=== PATIENT | female | born 1975 | race Caucasian/White ===

== ENCOUNTER 2017-05-02 21:51 | Emergency (ER) | payer OTHER ==
[~2017-05-02] VITALS: Ht 172.7 cm; Wt 87.0 kg
[~2017-05-02 21:51] MED LIST: IBUP-103 PO
[2017-05-02 21:56] VITALS: TEMP 36.9; Ht 172.7 cm; Wt 87.0 kg
[2017-05-02] MEDS ORDERED: NITR-5 PO (22:08)
[2017-05-02] MEDS ORDERED: PHEN-876 PO (22:08)
--- NOTE | 2017-05-02 22:10 | EMERGENCY ROOM VISIT NOTE ---
History First contact with patient: 22:01 Chief Complaint: URINARY SYMPTOMS Stated Complaint: UTI History of Present Illness The patient is a 41 year old female who presents to the Emergency Room with complaints of urinary symptoms. The patient states that she developed urinary urgency, increased frequency of urination, and dysuria today. She has a history of UTIs and states this feels similar. She rates her discomfort an 8/ 10. She denies any abdominal pain, back pain or fevers. She denies any abnormal vaginal discharge. Review of Systems A complete 10 point review of systems was reviewed with the patient with pertinent positives and negatives as per history of present illness. All else were negative. Social History Smoking Status: Current Every Day Smoker Occupation Status: employed Current/Historical Medications Scheduled Buprenorphine Hcl-Naloxone Hcl (Suboxone 8-2 Mg), 1 DOSE SL DAILY Nitrofurantoin Monohyd Macrocr (Macrobid), 100 MG PO BID Phenazopyridine HCl (Pyridium), 200 MG PO TID Physical Exam Vital Signs Date Time Temp Pulse Resp B/P (MAP) Pulse Ox O2 Delivery O2 Flow Rate FiO2 05/02/17 21:56 36.9 82 16 110/78 96 Room Air Physical Exam VITALS: Vitals are noted on the nurse's note and reviewed by myself. Vital signs stable. Afebrile. GENERAL: This is a 41-year-old female, in no acute distress, nondiaphoretic, well-developed well-nourished. HEART: Regular rate and rhythm without murmurs gallops or rubs. LUNGS: Clear to auscultation bilaterally without wheezes, rales or rhonchi. ABDOMEN: Positive bowel sounds x 4. Soft, nontender to palpation. MUSCULOSKELETAL: No CVA tenderness. NEURO: Patient was alert and oriented to person place and time. Medical Decision & Procedures ED Course The patient was evaluated as above. Urine sample was obtained and sent for culture. Patient was given home packs of Macrobid and Pyridium. Discharge instructions were reviewed with the patient. The patient verbalized understanding of my assessment and treatment plan and was discharged home in good condition. Medical Decision Differential diagnosis includes UTI, pyelonephritis, vaginal infection, among others. The patient is a 41-year-old female who presents today complaining of urinary symptoms. She is afebrile and without back pain. Urine dip showed blood and white blood cells. The patient has had urinary tract infections and has been seen here in the past. Previous cultures have grown out pansensitive Escherichia coli. Patient will be placed on Macrobid and Pyridium for symptomatic relief. Based on the patient's presentation and work up, I feel the patient is stable for outpatient treatment. The patient was educated to return to the emergency department for any worsening of their current condition or new/concerning symptoms. She will follow up with her PCP as needed. Medication Reconcilliation Current Medication List: was personally reviewed by me Blood Pressure Screening Patient's blood pressure: Normal blood pressure Impression Primary Impression: Urinary tract infection Departure Information Dispostion Home / Self-Care Condition GOOD Prescriptions Phenazopyridine HCl (Pyridium) 200 Mg Tab 200 MG PO TID for 2 Days, #6 TAB Prov: Sylwia Francisco PA-C 05/02/17 Nitrofurantoin Monohyd Macrocr (Macrobid) 100 Mg Cap 100 MG PO BID for 7 Days, #14 CAP Prov: Sylwia Francisco PA-C 05/02/17 Referrals No Doctor, Assigned (PCP) Patient Instructions My [facility] Additional Instructions You have been treated in the Emergency Department for a Urinary Tract Infection (UTI). You have been prescribed Macrobid to be taken twice daily for a total of 7 days. This is an antibiotic. All antibiotics have the potential to cause diarrhea. Stop this medication and contact a medical provider if you were to develop any significant adverse side effects including: wheezing, shortness of breath, passing out, vomiting, or a diffuse rash. Always take antibiotics as directed and COMPLETE the ENTIRE course regardless of the improvement of your symptoms. You have been prescribed Pyridium to be taken as prescribed. This medicine will help with the urinary symptoms that you have been experiencing. Be aware that Pyridium may turn your urine a red-orange or brown color. This effect is harmless. Drink plenty of water and stay well hydrated. As with any trip to the Emergency Department, you should follow-up with your Primary Care Provider from today's visit. Return to the emergency department if your symptoms persist despite treatment plan outlined above or if the following symptoms occur: increased fevers, chills , low back pain, nausea/vomiting, or blood in your urine. Problem Qualifiers Primary Impression: Urinary tract infection Urinary tract infection type: acute cystitis Hematuria presence: with hematuria Qualified Codes: N30.01 - Acute cystitis with hematuria
[2017-05-02] MEDS ORDERED: PHENAZOPYRIDINE HOME PACK 200 MG VIAL PO ONE (22:15)
[2017-05-02] MEDS ORDERED: MACROBID 100MG HOME PACK 1 EA VIAL PO ONE (22:15)
[2017-05-02] MEDS ORDERED: BUPR1SUB23 SL (22:30)
[2017-05-02 23:12] VITALS: BP 114/78; PULSE 74; O2SAT 98
== END 2017-05-02 23:13 | disposition home or self-care (01) ==
LOC: C.EDB 21:53
DX: N30.01 Acute cystitis with hematuria (principal); F17.200 Nicotine dependence, unspecified, uncomplicated